=== PATIENT | female | born 1975 | race Caucasian/White ===

== ENCOUNTER 2024-08-19 11:05 | Emergency (ER) | payer OTHER, SELFPAY ==
--- OUTSIDE RECORDS SUMMARY | 2024-08-19 11:08 | XMS_ITS | Continuity of Care Document ---
Author Name Prema Mariscal Address [address] [facility] [address] [place] [address] Organization Unknown Address [address] [place] [address] [address] [place] [address] Medications Problems
--- OUTSIDE RECORDS SUMMARY | 2024-08-19 11:08 | XMS_ITS | Clinical Summary ---
Author Organization [facility] Address [address] [facility] [place] [address] Care Team Providers Care Blow Mold Technician Name Role Phone Unavailable Primary Care Provider Unavailabl e Source Comments [facility],non-owned Affiliates and Associated Physician Practices is amultiple site organization consisting of ambulatory clinics and hospital sitesin [place], [place], [place] and [place]. This disclosure is being madepursuant to the Care Everywhere program and may not contain all information available regarding this patient. Last updated 18.[facility] Social History Tobacco Use Types Packs/Day Years Used Date Smoking Tobacco: Never Assessed Sex and Gender Information Value Date Recorded Sex Assigned at Not on file Gender Identity Not on file Sexual Orientation Not on file Last Filed Vital Signs Vital Sign Reading Time Taken Comments Blood Pressure 116/72 05/16/2014 7:50 AM ORACLE SPECIALIST Pulse 59 05/16/2014 7:50 AM ORACLE SPECIALIST Temperature 37.6 C (99.7 F) 05/16/2014 7:50 AM ORACLE SPECIALIST Respiratory Rate 16 05/16/2014 7:50 AM ORACLE SPECIALIST Oxygen Saturation 97% 05/16/2014 7:50 AM ORACLE SPECIALIST Inhaled Oxygen Concentration - - Weight 68.5 kg (151 lb 1 oz) 05/15/2014 7:05 AM ORACLE SPECIALIST Height 154.9 cm (5' 1 ) 05/15/2014 7:05 AM ORACLE SPECIALIST Body Mass Index 28.54 05/15/2014 7:05 AM ORACLE SPECIALIST Plan of Treatment Health Maintenance Due Date Last Done Comments COLOGUARD (AGES 45-75) - COL ON CA SCREENING 1975 COLON MONITORING 1975 COLONOSCOPY - COLON CA SCREENING 1975 CT COLONOGRAPHY - COLON CA SCREENING 1975 Colorectal Cancer Screening 1975 FIT - COLON CA SCREENING 1975 FLEX SIG - COLON CA SCREENING 1975 LIPID TESTING 1975 MAMMOGRAM 1975 PAP SMEAR 1975 HIV SCREENING 1990 HEPATITIS C SCREENING 05/05/1993 DTAP/TDAP/TD VACCINES (1 - Tdap) 1994 HEPATITIS B VACCINE (1 of 3 - 19+ 3-dose series) 1994 COVID-19 VACCINE ( - 2023-2 5 season) 2024 INFLUENZA VACCINE (#1) 2024 DEPRESSION SCREENING 07/04/2024 ZOSTER VACCINE (1 of 2) 2025 HIB VACCINE Aged Out No longer eligi ble based on patient's age to complete this topic HPV VACCINE Aged Out No longer eligi ble based on patient's age to complete this topic MENINGOCOCCAL (Group B) VACCINE Aged Out No longer eligible based on patient's age to complete this topic MENINGOCOCCAL VACCINE Aged Out No randy william eligible based on patient's age to complete this topic PNEUMOCOCCAL VACCINE Aged Out No long er eligible based on patient's age to complete this topic
--- OUTSIDE RECORDS SUMMARY | 2024-08-19 11:08 | XMS_ITS | Clinical Summary ---
Author Organization [facility] Address [address] [place] [address] Phone Care Team Providers Care Milk Inspector Name Role Phone Unavailable Unavailable Unavailable Reason for Visit and Chief Complaint The Chief Complaint is: Due for pap and mammogram. Been having some cramping and spotting not all the time started 6 months ago spotting is like every other month and for only a few days. Painful during intercourse,. patient still has ovaries Plan of Treatment Bleeding s/p hysterectomy: cervix clearly still present on exam so I explained this is fairly common since she has ovaries and cervix and no need to worry unless bleeding is heavy or prolonged. Op note and pathology requested Pelvic pain/dyspareunia: check pelvic U/S - Last Documented On 07/26/2017 3:43PM ; [facility] Pending Tests Order Diagnosis Results Due Ordering P rovider U/S @ [facility]I - OB or JV U/S PTVT US Pelvic and perineal pain 07/26/17 SHALA ANTUNEZ MD Last Documented On 8 2:23PM ; [facility] Radiology @ other - *MAMMOGRAPHY SCREENING MAMMOGRAM Encntr screen mammogram for malignant neoplasm of breast 07/26/17 SHALA ANTUNEZ MD Last Documented On 8 2:29PM ; [facility] Instructions to patient Instructions for patient : B reast Self Exam discussed Last Documented On 8 3:25PM ; [facility] Education and Decision Aids were provided during visit for: Patient education : Last Documented On 8 3:25PM ; [facility] STD screening offered and de clined Last Documented On 8 3:25PM ; [facility] Assessments Includes: Assessments from this encounter Findings - Routine pelvic exam - Last Documented On 07/26/2017 3:43PM ; [facility] - Deep dyspareunia - Last Documented On 07/26/2017 3:43PM ; [facility] - Female pelvic pain - Last Documented On 07/26/2017 3:43PM ; [facility] - Abnormal vaginal bleeding - Last Documented On 07/26/2017 3:43PM ; [facility] Instructions Includes: Instructions from this encounter Instructions to patient Instructions for patient : B reast Self Exam discussed Last Documented On 8 3:25PM ; [facility] Education and Decision Aids were provided during visit for: Patient education : Last Documented On 8 3:25PM ; [facility] STD screening offered and de clined Last Documented On 8 3:25PM ; [facility] Medical Equipment - Implanted Devices Includes: Current Devices No Medical Equipment Recorded Medications Includes: Medications discussed during this encounter and other current Medications No Medications Taken Medications Administered Includes: Administered Medications from this encounter No Administered Medications Recorded Vital Signs Includes: Vital Signs from this encounter Vital Name 07/26/2017 03:09P Blood Pressure Sitting (mmHg) 130/62 Pulse Rate-Sitting (bpm) 72 Height (in) 61 Weight (lb) 167.5 Body Mass Index (kg/m2) 31.6 Body Surface Area (m2) 1.8 Last Documented: On 07/26/2017 3:13PM ; [facility] Results Includes: Results discussed during this encounter No Results Recorded For Specified Dates History of Present Illness Includes: History of Present Illness from this encounter NICHOLE ERVIN is a 42 year old female. - Unusual bleeding hysterectomy 2010 then started bleeding about 6 months ago on average every 2 months for 1-2 days light flow to pinkish with mucus. No itching or burning or foul smell. - Pelvic pain mainly LLQ around time of bleeding but other times as well, Tylenol helps. No urinary or bowel complaints. - Vaginal pain during intercourse for a couple years - No vaginal discharge Social History Description Last Updated In monogamous relationship 07/26/2017 Last Documented On 8 3:43PM ; [facility] Alcohol use: 2 drinks or less per day no ne 07/26/2017 Last Documented On 8 3:43PM ; [facility] Non-smoker 07/26/2017 Last Documented On 8 3:43PM ; [facility] Sexually active 07/26/2017 Last Documented On 8 3:43PM ; [facility] Smoking Status Unknown Procedures and Surgical History Includes: Procedures from this encounter Procedures Code Diagnosis Performing Provider Service L ocation Service Date gynecologic surgery Hysterectomy ~Cholecystectomy ~Vaginal 58267 Last Documented On 8 3:06PM ; [facility] Clinical summary provided to patient Last Documented On 8 3:25PM ; [facility] cervical Pap smear 25008 Last Documented On 8 3:25PM ; [facility] Surgical History Last Updated History of hysterectomy 07/26/2017 Last Documented On 8 3:43PM ; [facility] Surgical / procedural history 07/26/2017 Last Documented On 8 3:43PM ; [facility] Medical History Includes: Medical History addressed during this encounter Description Last Updated Med Hx: noneMeds: noneAll: P CNSurg Hx: laparoscopic hysterectomy (she thinks it was total and cervix removed and had both ovaries left in place) in [place] due to heavy periods, 4 ablations [facility] to [facility] with Dr. Avila, L/S choleSoc Hx: quit smoking 2006, occ ETOH, no drugsOb Hx; X 1Gyn Hx: no abnl pap/STDFam Hx: mat aunt-breast cancer age 44, MGM-ovarian cancer in her 40s, no uterine cancer 07/26/2017 Last Documented On 8 3:43PM ; [facility] Contraception: Hysterectomy 07/26/2017 Last Documented On 8 3:43PM ; [facility] 1 07/26/2017 Last Documented On 8 3:43PM ; [facility] Last mammogram date: 01/30/2011 8 Last Documented On 8 3:43PM ; [facility] Last pap smear date 01/23/2011 07/26/2017 Last Documented On 8 3:43PM ; [facility] LMP: 12/06/2010 07/26/2017 Last Documented On 8 3:43PM ; [facility] Para 1 07/26/2017 Last Documented On 8 3:43PM ; [facility] Family History Includes: Family History addressed during this encounter No Family History Recorded Review of Systems Includes: Review of Systems from this encounter Systemic: No recent weight change. Head: No headache. Eyes: No vision problems. Otolaryngeal: No hoarseness. Cardiovascular: No chest pain or discomfort and no palpitations. Pulmonary: No shortness of breath. Gastrointestinal: Normal appetite. No nausea, no vomiting, and no hematochezia. No diarrhea and no constipation. Genitourinary: No nocturia. No urinary loss of control and no dysuria. Musculoskeletal: No arthralgias and no localized joint swelling. Neurological: No tingling and no numbness. Psychological: No anxiety, no depression, and no sleep disturbances. Mental Status Includes: Mental Status from this encounter Description No anxiety Functional Status Includes: Functional Status from this encounter No Functional Status Recorded Physical Exam Includes: Physical Exam from this encounter Allergies Includes: Active Allergies Substance Type Reaction Onset Date Resolved Date Statu s Penicillin V Potassium Allergy 07/26/2017 Active Last Documented On 8 3:06PM ; [facility] Encounters Encounter Provider Location Date Check-In Time Check-Out Time Diagnosis NEW PHARMACY INFORMATICS SPECIALIST EXAM SHALA ANTUNEZ MD [facility] RECRUITER MANAGER 07/26/19 18 2:56PM 3:41PM Female Pelvic Pain,Dyspareu sg Deep,Routine Pelvic Exam,Abnormal Vaginal Bleeding Insurance Includes: Active Insurance Policies No Insurance Coverage Recorded Guarantor Relationship Effective Dates Guarantor Ph one NELSON ERVIN Self [id number] Clinical Notes Includes: Clinical Notes from this encounter No Clinical Notes Recorded
--- OUTSIDE RECORDS SUMMARY | 2024-08-19 11:08 | XMS_ITS | Continuity of Care Document ---
Author Name Prema Mariscal Address [address] [facility] [address] [place] [address] Organization Unknown Address [address] [place] [address] [address] [place] [address] Medications Problems
--- OUTSIDE RECORDS SUMMARY | 2024-08-19 11:08 | XMS_ITS | Patient Health Summary ---
Author Organization [facility] Address [address] [place] [address] Care Team Providers Care Appraiser Name Role Phone Unavailable Primary Care Provider Unavailabl e Note from [facility],non-owned Affiliates and Associated Physician Practices is amultiple site organization consisting of ambulatory clinics and hospital sitesin [place], [place], [place] and [place]. This disclosure is being madepursuant to the Care Everywhere program and may not contain all information available regarding this patient. Last updated 18.[facility] Social History Tobacco Use Types Packs/Day Years Used Date Smoking Tobacco: Never Assessed Sex and Gender Information Value Date Recorded Sex Assigned at Not on file Gender Identity Not on file Sexual Orientation Not on file Last Filed Vital Signs Vital Sign Reading Time Taken Comments Blood Pressure 116/72 05/16/2014 7:50 AM FLOW MATCH SOFA CUTTER Pulse 59 05/16/2014 7:50 AM FLOW MATCH SOFA CUTTER Temperature 37.6 C (99.7 F) 05/16/2014 7:50 AM FLOW MATCH SOFA CUTTER Respiratory Rate 16 05/16/2014 7:50 AM FLOW MATCH SOFA CUTTER Oxygen Saturation 97% 05/16/2014 7:50 AM FLOW MATCH SOFA CUTTER Inhaled Oxygen Concentration - - Weight 68.5 kg (151 lb 1 oz) 05/15/2014 7:05 AM FLOW MATCH SOFA CUTTER Height 154.9 cm (5' 1 ) 05/15/2014 7:05 AM FLOW MATCH SOFA CUTTER Body Mass Index 28.54 05/15/2014 7:05 AM FLOW MATCH SOFA CUTTER Procedures * PATHOLOGY TISSUE(Performed 05/15/2014) * TYPE + SCREEN PANEL(Performed 05/15/2014) * CBC W/O DIFFERENTIAL(Performed 05/08/2014) * COMPREHENSIVE METABOLIC PANEL(Performed 04/11/2014) Results * PATHOLOGY TISSUE (05/15/2014 10:15 AM FLOW MATCH SOFA CUTTER) Surgical Pathology Tissue CLINICAL HISTORY: Calculus of gallbladder without mention of cholecystitis or obstruction. OPERATIVE PROCEDURE: Laparoscopic cholecystectomy, possible intraoperative cholangiogram. FINAL DIAGNOSIS: GALLBLADDER, CHOLECYSTECTOMY: - MILD CHRONIC CHOLECYTITIS AND CHOLELITHIASIS GROSS DESCRIPTION: Container A is labeled with Hein, Zee and gallbladder . Received, in formalin, is a gallbladder which measures 11.2 cm in length and is up to 2.7 cm in diameter. The cystic duct measures 0.3 cm in diameter. The serosal surface is purple-blue and glistening. The gallbladder wall measures up to 0.3 cm in thickness. The mucosal surface is green and velvety. Contained within the lumen of the gallbladder are green bile and multiple, multi-faceted green stones ranging in greatest dimension from 0.4 to 0.7 cm. There are multiple stones found occluding the cystic duct. [place] Protection Maintainer sections from the gallbladder are submitted in cassette A1. VEENA for SM/edk MICROSCOPIC DESCRIPTION: Sections show portions of gallbladder with mild chronic inflammation within the submucosa. There is no cytologic atypia or architectural abnormality. TRUMAN/josefina The performance characteristics of all immunohistochemical and indirect immunofluorescence stains (if any) cited in this report were determined by the [facility]opathology Laboratory of [facility]. Some of these tests were developed by our own laboratory and have not been cleared or approved by the US Food and Drug Administration. The FDA does not require this test to go through premarket FDA review. These tests are used for clinical purposes. They should not be regarded as investigational or for research. This laboratory is certified under the Clinical Laboratory Improvement Amendments (CLIA) as qualified to perform high complexity clinical laboratory testing. This case has been personally reviewed and interpreted by the attending (teaching) pathologist. Final Diagnosis performed by Anisha Barger M.D. Electronically signed 05/16/2014 [facility] Other (qualifier value) 05/15/2014 10:15 AM FLOW MATCH SOFA CUTTER 05/15/2014 12:36 PM FLOW MATCH SOFA CUTTER Narrative [facility] - 05/16/2014 3:13 PM FLOW MATCH SOFA CUTTER PROBLEM LIST: The problems are not reviewed yet. Please review them in the Problem List activity and refresh this SmartLink. PRE-OP DIAGNOSIS: CALCULUS OF GALLBLADDER WITHOUT MENTION OF CHOLECYSTITIS OR OBSTRUCTION OPERATIVE PROCEDURE / FINDINGS: Procedure(s) with comments: LAPAROSCOPIC CHOLECYSTECTOMY, POSSIBLE INTRAOPERATIVE CHOLANGIOGRAM - 52041 POST-OP DIAGNOSIS: No post-op diagnosis entered Collection Date->05/15/14 Collection Time->10:15 AM Specimen A->Gallbladder Gallbladder for perm. Raulito Up MD LAB - PATHOLOGY/CYTO LOGY ORDERABLES [facility] * TYPE + SCREEN PANEL (05/15/2014 7:47 AM FLOW MATCH SOFA CUTTER) Typem O NEG [facility] Antibody Screen NEG [facility] Blood specimen (specimen) 05/15/2014 7:47 AM FLOW MATCH SOFA CUTTER 05/15/2014 7:47 AM FLOW MATCH SOFA CUTTER Brian Cruz MD LAB - BLOOD BANK ORD ERASONU Performing Organization Address City/[facility]/ZIP Co de Phone Number [facility] [address] [place] [address] * CBC W/O DIFFERENTIAL (05/08/2014 10:31 AM FLOW MATCH SOFA CUTTER) WBC 5.5 3.5 - 10.5 10 3/uL [facility] RBC 4.55 3.90 - 5.00 10 6/uL [facility] Hemoglobin 14.6 12.0 - 15.5 g/dL [facility] Hematocrit 43.0 35.0 - 45.0 % [facility] MCV 94.5 81.0 - 97.0 fL [facility] MCH 32.1 28.0 - 34.0 pg [facility] MCHC 34.0 32.0 - 36.0 g/dL [facility] Platelet Count 210 150 - 400 10 3/uL [facility] RDW-SD 41.9 36.0 - 50.0 fL [facility] RDW-CV 12.3 11.2 - 14.8 % [facility] MPV 10.2 9.3 - 12.8 fL [facility] Blood specimen (specimen) BLOOD SPECIMEN / Unknown 05/08/2014 10:31 AM FLOW MATCH SOFA CUTTER 05/08/2014 10:52 AM FLOW MATCH SOFA CUTTER Brian Cruz MD LAB - [place] [address], [place] [phone] * COMPREHENSIVE METABOLIC PANEL (04/11/2014 3:29 PM CDT) BUN 12 7 - 26 mg/dL [facility] Creatinine 0.7 0.6 - 1.2 mg/dL [facility] Sodium 143 136 - 145 mmol/L [facility] Potassium 3.7 3.5 - 4.5 mmol/L [facility] Chloride 107 98 - 107 mmol/L [facility] CO2 24 22 - 29 mmol/L [facility] Glucose 84 70 - 115 mg/dL [facility] Calcium 10.1 8.4 - 10.2 mg/dL [facility] Protein Total 7.6 6.0 - 8.3 g/dL [facility] Albumin 4.3 3.4 - 5.0 g/dL [facility] Bilirubin Total 0.6 0.2 - 1.2 mg/dL [facility] Alkaline Phosphatase 58 40 - 150 Units/L [facility] ALT 15 0 - 55 Units/L [facility] AST 19 5 - 34 Units/L [facility] Anion Gap 16 8 - 18 [facility] BUN/Creatinine Ratio 17 7 - 23 [facility] Osmolality Calculated 280 270 - 300 mOsm/kg [facility] Albumin/Globulin Ratio 1.3 1.1 - 2.3 [facility] eGFR >60 >60 mL/min/1.7 3 m2 [facility] Blood specimen (specimen) BLOOD SPECIMEN / Unknown 04/11/2014 3:29 PM CDT 04/11/2014 3:48 PM CDT Raulito Up MD LAB - CHEMISTRY EDITH Blood Organization Address City/State/ZIP Co de Phone Number [facility] [address] [phone]
--- OUTSIDE RECORDS SUMMARY | 2024-08-19 11:08 | XMS_ITS ---
Care Plan - [facility] Created on: August 19, 2024 NELSON ERVIN : 1975 Sex: Female Author Organization [facility] Address [address] [place] [address] Phone Care Team Providers Care Builder Operator Name Role Phone Unavailable Unavailable Unavailable
--- OUTSIDE RECORDS SUMMARY | 2024-08-19 11:08 | XMS_ITS | Clinical Summary ---
Author Organization [facility] Address [address] [place] [address] Phone Care Team Providers Care Senior Net Developer Architect Name Role Phone Unavailable Unavailable Unavailable Reason for Visit and Chief Complaint PELVIC W/TVT Plan of Treatment No Plan of Treatment Recorded Assessments Includes: Assessments from this encounter No Assessments Recorded Medical Equipment - Implanted Devices Includes: Current Devices No Medical Equipment Recorded Medications Includes: Medications discussed during this encounter and other current Medications No Medications Taken Medications Administered Includes: Administered Medications from this encounter No Administered Medications Recorded Results Includes: Results discussed during this encounter No Results Recorded For Specified Dates History of Present Illness Includes: History of Present Illness from this encounter No History of Present Illness Recorded Social History No Social History Recorded - Smoking Status Unknown Medical History Includes: Medical History addressed during this encounter No Medical History Recorded Family History Includes: Family History addressed during this encounter No Family History Recorded Review of Systems Includes: Review of Systems from this encounter No Review of Systems Recorded Mental Status Includes: Mental Status from this encounter No Mental Status Recorded Functional Status Includes: Functional Status from this encounter No Functional Status Recorded Physical Exam Includes: Physical Exam from this encounter No Physical Exam Recorded Allergies Includes: Active Allergies Substance Type Reaction Onset Date Resolved Date Statu s Penicillin V Potassium Allergy 07/26/2017 Active Last Documented On 8 3:06PM ; [facility] Encounters Encounter Provider Location Date Check-In Time Check-Out Time Diagnosis PELVIC W/TVT SHALA ANTUNEZ MD [facility] DATA OFFICER 8 10:28AM 10:43AM Insurance Includes: Active Insurance Policies No Insurance Coverage Recorded Guarantor Relationship Effective Dates Guarantor Ph one NELSON ERVIN Self [id number] Clinical Notes Includes: Clinical Notes from this encounter No Clinical Notes Recorded
--- OUTSIDE RECORDS SUMMARY | 2024-08-19 11:08 | XMS_ITS ---
Author Organization [facility] Address [address] [place] [address] Phone Care Team Providers Care Meeting Planner Name Role Phone Unavailable Unavailable Unavailable Plan of Treatment Instructions to patient Instructions for patient : B reast Self Exam discussed Last Documented On 8 3:25PM ; [facility] Education and Decision Aids were provided during visit for: Patient education : Last Documented On 8 3:25PM ; [facility] STD screening offered and de clined Last Documented On 8 3:25PM ; [facility] Assessments Includes: Assessments for all patient encounters Findings Encounter Date Abnormal vaginal bleeding NEW EMBROIDERY SUPERVISOR EXAM with SHALA ANTUNEZ MD 07/26/2017 Last Documented On 8 3:43PM ; [facility] Deep dyspareunia NEW EMBROIDERY SUPERVISOR EXAM with SHALA ANTUNEZ MD 07/26/2017 Last Documented On 8 3:43PM ; [facility] Female pelvic pain NEW EMBROIDERY SUPERVISOR EXAM with SHALA REYES MD 07/26/2017 Last Documented On 8 3:43PM ; [facility] Routine pelvic exam NEW EMBROIDERY SUPERVISOR EXAM with SHALA CONTRERAS MD 07/26/2017 Last Documented On 8 3:43PM ; [facility] Instructions Includes: Instructions for all patient encounters Instructions to patient Instructions for patient : B reast Self Exam discussed Last Documented On 8 3:25PM ; [facility] Education and Decision Aids were provided during visit for: Patient education : Last Documented On 8 3:25PM ; [facility] STD screening offered and de clined Last Documented On 8 3:25PM ; [facility] Medical Equipment - Implanted Devices Includes: Current and historical Devices No Medical Equipment Recorded Medications Includes: Current and historical Medications No Medications Taken Medications Administered Includes: Administered Medications in patient's chart No Administered Medications Recorded Results Includes: Results from 08/19/2023 through 08/19/2024 No Results Recorded For Specified Dates History of Present Illness History of Present Illness not supported for this document type No History of Present Illness Recorded Social History Description Last Updated In monogamous relationship 07/26/2017 Last Documented On 8 3:43PM ; [facility] Alcohol use: 2 drinks or less per day no ne 07/26/2017 Last Documented On 8 3:43PM ; [facility] Non-smoker 07/26/2017 Last Documented On 8 3:43PM ; [facility] Sexually active 07/26/2017 Last Documented On 8 3:43PM ; [facility] Smoking Status Unknown Procedures and Surgical History Surgical History Last Updated History of hysterectomy 07/26/2017 Last Documented On 8 3:43PM ; [facility] Surgical / procedural history 07/26/2017 Last Documented On 8 3:43PM ; [facility] Medical History Includes: Medical History in patient's chart Description Last Updated Contraception: Hysterectomy 07/26/2017 Last Documented On 8 3:43PM ; [facility] 1 07/26/2017 Last Documented On 8 3:43PM ; [facility] Last mammogram date: 01/30/2011 8 Last Documented On 8 3:43PM ; [facility] Last pap smear date 01/23/2011 07/26/2017 Last Documented On 8 3:43PM ; [facility] LMP: 12/06/2010 07/26/2017 Last Documented On 8 3:43PM ; [facility] Para 1 07/26/2017 Last Documented On 8 3:43PM ; [facility] Family History Includes: Family History in patient's chart No Family History Recorded Review of Systems Review of Systems not supported for this document type No Review of Systems Recorded Mental Status No Mental Status Recorded Functional Status No Functional Status Recorded Physical Exam Physical Exam not supported for this document type No Physical Exam Recorded Allergies Includes: Active, inactive, and resolved Allergies Substance Type Reaction Onset Date Resolved Date Statu s Penicillin V Potassium Allergy 07/26/2017 Active Last Documented On 8 3:06PM ; [facility] Insurance Includes: Active Insurance Policies No Insurance Coverage Recorded Guarantor Relationship Effective Dates Guarantor Ph one HILARIA ERVINAH Lotus Self [id number] Clinical Notes Includes: Signed Clinical Notes starting from 07/23/2022 No Clinical Notes Recorded
--- OUTSIDE RECORDS SUMMARY | 2024-08-19 11:08 | XMS_ITS | Clinical Summary ---
Author Organization [facility] Address [address] [place] [address] Phone Care Team Providers Care Diabetes Physician Name Role Phone Stevie Hernandez MD Primary Care Provider [phone] Social History Tobacco Use Types Packs/Day Years Used Date Smoking Tobacco: Never Assessed Comments Unknown Sex and Gender Information Value Date Recorded Sex Assigned at Not on file Legal Sex Female 11:46 PM CDT Gender Identity Not on file Sexual Orientation Not on file Plan of Treatment Health Maintenance Due Date Last Done Comments Hepatitis C Virus (HCV) Screening 1975 TdaP Immunization 1975 Hepatitis B Immunization (1 of 3 - 19+ 3-dose series) 1994 Pap Smear 1996 Cervical Cancer Screening (CCS) 2005 HPV/Cotest 2005 Discussion re Starting/Frequ ency of Mammograms 2015 Colonoscopy 2020 Colorectal Cancer Screening 2020 Influenza Immunization (#1) 2024 SARS-COV-2 Immunization ( season) 2024 Respiratory Syncytial Virus (RSV) Immunization (Adult) (1 - 1-dose 75+ series) 2050 Meningococcal Immunization (ACWY) Aged Out No longer eligible based on patient's age to complete this topic Pneumococcal Immunization Combined Aged Out No longer eligible based on patient's age to complete this topic Rotavirus Immunization Aged Out No lo nger eligible based on patient's age to complete this topic Care Teams Diabetes Physician Relationship Specialty Start Date End Date Stevie Hernandez MD [address] [place] [id number] PCP - General Family Medicine 10/16/15
--- OUTSIDE RECORDS SUMMARY | 2024-08-19 11:08 | XMS_ITS | Referral Summary ---
Author Organization [facility] Address [address] [place] [address] Care Team Providers Care Box Truck Owner Operator Name Role Phone Unavailable Primary Care Provider Unavailabl e Source Comments [facility],non-owned Affiliates and Associated Physician Practices is amultiple site organization consisting of ambulatory clinics and hospital sitesin [place], [place], [place] and [place]. This disclosure is being madepursuant to the Care Everywhere program and may not contain all information available regarding this patient. Last updated 18.[facility] Social History Tobacco Use Types Packs/Day Years Used Date Smoking Tobacco: Never Assessed Sex and Gender Information Value Date Recorded Sex Assigned at Not on file Gender Identity Not on file Sexual Orientation Not on file Last Filed Vital Signs Vital Sign Reading Time Taken Comments Blood Pressure 116/72 05/16/2014 7:50 AM PURCHASING ENGINEER Pulse 59 05/16/2014 7:50 AM PURCHASING ENGINEER Temperature 37.6 C (99.7 F) 05/16/2014 7:50 AM PURCHASING ENGINEER Respiratory Rate 16 05/16/2014 7:50 AM PURCHASING ENGINEER Oxygen Saturation 97% 05/16/2014 7:50 AM PURCHASING ENGINEER Inhaled Oxygen Concentration - - Weight 68.5 kg (151 lb 1 oz) 05/15/2014 7:05 AM PURCHASING ENGINEER Height 154.9 cm (5' 1 ) 05/15/2014 7:05 AM PURCHASING ENGINEER Body Mass Index 28.54 05/15/2014 7:05 AM PURCHASING ENGINEER Plan of Treatment Not on file
--- OUTSIDE RECORDS SUMMARY | 2024-08-19 11:10 | XMS_ITS | Clinical Summary ---
Author Organization [facility] Address [address] [place] [address] Phone Care Team Providers Care Semiconductor Technician Name Role Phone Unavailable Unavailable Unavailable Reason [...] - Last Documented On 07/26/2017 3:43PM ; [facility] Pending Tests Order Diagnosis Results Due Ordering P rovider U/S @ [facility]ANDI - OB or JV U/S PTVT US Pelvic and perineal pain 07/26/17 SHALA ANTUNEZ MD Last Documented On 8 2:23PM ; [facility] Radiology @ other - *MAMMOGRAPHY SCREENING MAMMOGRAM Encntr screen mammogram for malignant neoplasm of breast 07/26/17 SHALA ANTUNEZ MD Last Documented On 8 2:29PM ; [facility] Instructions to patient Instructions for patient : B reast Self Exam discussed Last Documented On 8 3:25PM ; [facility] Education and Decision Aids were provided during visit for: Patient education : Last Documented On 8 3:25PM ; [facility] STD screening offered and de clined Last Documented On 8 3:25PM ; [facility] Assessments Includes: Assessments from this encounter Findings - Routine pelvic exam - Last Documented On 07/26/2017 3:43PM ; [facility] - Deep dyspareunia - Last Documented On 07/26/2017 3:43PM ; [facility] - Female pelvic pain - Last Documented On 07/26/2017 3:43PM ; [facility] - Abnormal vaginal bleeding - Last Documented On 07/26/2017 3:43PM ; [facility] Instructions Includes: Instructions from this encounter Instructions to patient Instructions for patient : B reast Self Exam discussed Last Documented On 8 3:25PM ; [facility] Education and Decision Aids were provided during visit for: Patient education : Last Documented On 8 3:25PM ; [facility] STD screening offered and de clined Last Documented On 8 3:25PM ; [facility] Medical Equipment - Implanted Devices Includes: [...] 1.8 Last Documented: On 07/26/2017 3:13PM ; [facility] Results Includes: Results discussed during this [...] 07/26/2017 Last Documented On 8 3:43PM ; [facility] Alcohol use: 2 drinks or less per day no ne 07/26/2017 Last Documented On 8 3:43PM ; [facility] Non-smoker 07/26/2017 Last Documented On 8 3:43PM ; [facility] Sexually active 07/26/2017 Last Documented On 8 3:43PM ; [facility] Smoking Status Unknown Procedures and Surgical History Includes: Procedures from this encounter Procedures Code Diagnosis Performing Provider Service L ocation Service Date gynecologic surgery Hysterectomy ~Cholecystectomy ~Vaginal 88483 Last Documented On 8 3:06PM ; [facility] Clinical summary provided to patient Last Documented On 8 3:25PM ; [facility] cervical Pap smear 33728 Last Documented On 8 3:25PM ; [facility] Surgical History Last Updated History of hysterectomy 07/26/2017 Last Documented On 8 3:43PM ; [facility] Surgical / procedural history 07/26/2017 Last Documented On 8 3:43PM ; [facility] Medical History Includes: Medical History addressed during this encounter Description Last Updated Med Hx: noneMeds: noneAll: P CNSurg Hx: laparoscopic hysterectomy (she thinks it was total and cervix removed and had both ovaries left in place) in [place] due to heavy periods, 4 ablations prior to hysterectomy at [facility] with Dr. Avila, L/S choleSoc Hx: quit smoking 2006, occ ETOH, no drugsOb Hx; X 1Gyn Hx: no abnl pap/STDFam Hx: mat aunt-breast cancer age 44, MGM-ovarian cancer in her 40s, no uterine cancer 07/26/2017 Last Documented On 8 3:43PM ; [facility] Contraception: Hysterectomy 07/26/2017 Last Documented On 8 3:43PM ; [facility] 1 07/26/2017 Last Documented On 8 3:43PM ; [facility] Last mammogram date: 01/30/2011 8 Last Documented On 8 3:43PM ; [facility] Last pap smear date 01/23/2011 07/26/2017 Last Documented On 8 3:43PM ; [facility] LMP: 12/06/2010 07/26/2017 Last Documented On 8 3:43PM ; [facility] Para 1 07/26/2017 Last Documented On 8 3:43PM ; [facility] Family History Includes: Family History addressed [...] Active Last Documented On 8 3:06PM ; [facility] Encounters Encounter Provider Location Date Check-In Time Check-Out Time Diagnosis NEW SHINGLE WEAVER EXAM SHALA ANTUNEZ MD [facility] PSYCHOLOGISTS 07/26/19 18 2:56PM 3:41PM Female Pelvic Pain,Dyspareu sg Deep,Routine Pelvic Exam,Abnormal Vaginal Bleeding Insurance Includes: Active Insurance Policies No Insurance Coverage Recorded Guarantor Relationship Effective Dates Guarantor Ph one NELSON ERVIN Self [id number] Clinical Notes Includes: Clinical Notes from this encounter No Clinical Notes Recorded
--- OUTSIDE RECORDS SUMMARY | 2024-08-19 11:10 | XMS_ITS | Clinical Summary ---
Author Organization [facility] Address [address] [place] [address] Phone Care Team Providers Care Cloth Edge Singer Name Role Phone Unavailable Unavailable Unavailable Reason [...] Active Last Documented On 8 3:06PM ; [facility] Encounters Encounter Provider Location Date Check-In Time Check-Out Time Diagnosis PELVIC W/TVT SHALA ANTUNEZ MD [facility] FIELD INSTALLER 8 10:28AM 10:43AM Insurance Includes: Active Insurance Policies No Insurance Coverage Recorded Guarantor Relationship Effective Dates Guarantor Ph one NELSON ERVIN Self [id number] Clinical Notes Includes: Clinical Notes from this encounter No Clinical Notes Recorded
[2024-08-19 11:11] VITALS: BP 127/89; PULSE 99; RESP 18; TEMP 36.6; O2SAT 99
--- OUTSIDE RECORDS SUMMARY | 2024-08-19 11:11 | XMS_ITS ---
Author Organization [facility] Address [address] [place] [address] Phone Care Team Providers Care Mason Liner Name Role Phone Unavailable Unavailable Unavailable Plan of Treatment Instructions to patient Instructions for patient : B reast Self Exam discussed Last Documented On 8 3:25PM ; [facility] Education and Decision Aids were provided during visit for: Patient education : Last Documented On 8 3:25PM ; [facility] STD screening offered and de clined Last Documented On 8 3:25PM ; [facility] Assessments Includes: Assessments for all patient encounters Findings Encounter Date Abnormal vaginal bleeding NEW COUNTY JUDGE EXAM with SHALA ANTUNEZ MD 07/26/2017 Last Documented On 8 3:43PM ; [facility] Deep dyspareunia NEW COUNTY JUDGE EXAM with SHALA ANTUNEZ MD 07/26/2017 Last Documented On 8 3:43PM ; [facility] Female pelvic pain NEW COUNTY JUDGE EXAM with SHALA REYES MD 07/26/2017 Last Documented On 8 3:43PM ; [facility] Routine pelvic exam NEW COUNTY JUDGE EXAM with SHALA CONTRERAS MD 07/26/2017 Last Documented On 8 3:43PM ; [facility] Instructions Includes: Instructions for all patient encounters Instructions to patient Instructions for patient : B reast Self Exam discussed Last Documented On 8 3:25PM ; [facility] Education and Decision Aids were provided during visit for: Patient education : Last Documented On 8 3:25PM ; [facility] STD screening offered and de clined Last Documented On 8 3:25PM ; [facility] Medical Equipment - Implanted Devices Includes: Current [...] 07/26/2017 Last Documented On 8 3:43PM ; [facility] Alcohol use: 2 drinks or less per day no ne 07/26/2017 Last Documented On 8 3:43PM ; [facility] Non-smoker 07/26/2017 Last Documented On 8 3:43PM ; [facility] Sexually active 07/26/2017 Last Documented On 8 3:43PM ; [facility] Smoking Status Unknown Procedures and Surgical History Surgical History Last Updated History of hysterectomy 07/26/2017 Last Documented On 8 3:43PM ; [facility] Surgical / procedural history 07/26/2017 Last Documented On 8 3:43PM ; [facility] Medical History Includes: Medical History in patient's chart Description Last Updated Contraception: Hysterectomy 07/26/2017 Last Documented On 8 3:43PM ; [facility] 1 07/26/2017 Last Documented On 8 3:43PM ; [facility] Last mammogram date: 01/30/2011 8 Last Documented On 8 3:43PM ; [facility] Last pap smear date 01/23/2011 07/26/2017 Last Documented On 8 3:43PM ; [facility] LMP: 12/06/2010 07/26/2017 Last Documented On 8 3:43PM ; [facility] Para 1 07/26/2017 Last Documented On 8 3:43PM ; [facility] Family History Includes: Family History in patient's [...] Active Last Documented On 8 3:06PM ; [facility] Insurance Includes: Active Insurance Policies No Insurance Coverage Recorded Guarantor Relationship Effective Dates Guarantor Ph one HILARIA ERVINAH Lotus Self [id number] Clinical Notes Includes: Signed Clinical Notes starting from 07/23/2022 No Clinical Notes Recorded
--- OUTSIDE RECORDS SUMMARY | 2024-08-19 11:11 | XMS_ITS ---
Care Plan - [facility] Created on: August 19, 2024 NELSON ERVIN : 1975 Sex: Female Author Organization [facility] Address [address] [place] [address] Phone Care Team Providers Care Legal Paraprofessional Name Role Phone Unavailable Unavailable Unavailable
--- NOTE | 2024-08-19 12:35 | ED_ITS ---
HPI - Extremity Problem General Chief complaint: Extremity Problem,Nontraumatic Stated complaint: Right Ring Finger Skin Sore Source: patient Mode of arrival: ambulatory Limitations: no limitations History of Present Illness HPI Narrative: Patient presents for evaluation of pain, swelling, and redness to 4th digit of the right hand. 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 She an increase in pain in her fourth digit of right hand three days ago. She then noted a pustule and redness to the affected digit. She woke from sleep this morning with a red streak up her hand, forearm and midway through the upper arm. She reports fever and chills. No nausea, vomiting or diarrhea. She is not diabetic. She does not smoke. She is right hand dominant. She rates her pain as 4/10 in severity. Related Data Home Medications ?Medication ?Instructions ?Recorded ?Confirmed ?Last Taken ?Type No Home Medications 08/19/24 08/19/24 Unknown History Allergies Allergy/AdvReac Type Severity Reaction Status Date / Time No Known Allergies Allergy Verified 08/19/24 11:23 Review of Systems Review of Systems: CONSTITUTIONAL: Reports fever and chills. EYES: Denies visual changes, redness, or discharge. ENT: Denies rhinorrhea, congestion, sore throat, or otalgia. CARDIOVASCULAR: Denies chest pain, palpitations, or edema. RESPIRATORY: Denies cough or dyspnea. GASTROINTESTINAL: Denies abdominal pain, nausea, vomiting, or diarrhea. GENITOURINARY: Denies dysuria or hematuria. SKIN: Reports pustule to the right ring finger with associated redness, which streaks up the right upper extremity MUSCULOSKELETAL: Reports pain and swelling in the fourth digit of the right hand NEUROLOGIC: Denies headache, numbness, dizziness, or weakness. PSYCHIATRIC: Denies anxiety or depression. [facility] Past Medical History Medical History No pertinent past medical history Surgical History Surgical History No pertinent past surgical history Family History Family History Mother Family history non-contributory Social History Social History (Updated 08/19/24 @ 12:39 by Guillermo Tay, [facility], ) Living arrangements: with family Gender identity (if verbalized by the patient): Female Spiritual care concerns: No Exam Narrative: GENERAL: Well-appearing, well-nourished, and in no acute distress. HEAD: Normocephalic, atraumatic. EYES: PERRLA and EOMI. ENT: Nares clear, no rhinorrhea or epistaxis. Mucous membranes moist. Oropharynx without tonsillar hypertrophy exudate or other lesions. Bilateral TMs pearly spear nonbulging NECK: Supple. No adenopathy or masses. No carotid bruits or JVD CHEST: Clear to auscultation. No respiratory distress. No wheezes rales or rhonchi HEART: Regular rate and rhythm. No murmur heard. Normal peripheral pulses. ABDOMEN: Soft, nontender, nondistended, normal active bowel sounds. EXTREMITIES: Normal range of motion. There is soft tissue swelling in the fourth digit of the right hand SKIN: There is approximately a 2 cm pustule noted to the distal phalanx of the palmar aspect of the 4th digit of the right hand. Fourth digit of the right hand is erythematous and there is a red streak running up the right forearm through the middle of the right upper arm. NEURO: No focal deficits. Alert and oriented x3. PSYCH: Normal mood and affect. Course Course Emergency Course: This is a 49-year-old female who presented for evaluation of redness, swelling and pain to the 4th digit of the right hand. She has appearance cellulitis. I am concerned about the red streak running up her right upper extremity in the setting of fevers and chills. I recommended she be transferred to the hospital for further evaluation treatment. She is agreeable with this plan. [facility] is her facility of choice. I contacted [facility] ER and spoke with RN, Lelia. She states Dr Escalera will accept pt to the Dept there. Pt transferred via private vehicle. Level of Care: Express Care Visit Vital Signs Vital signs: Vital Signs Temperature 36.6 C 08/19/24 11:11 Pulse Rate 99 08/19/24 11:11 Respiratory Rate 18 08/19/24 11:11 Blood Pressure 127/89 08/19/24 11:11 Pulse Oximetry 99 08/19/24 11:11 Oxygen Delivery Room Air 08/19/24 11:11 Temperature 36.6 C 08/19/24 11:11 Pulse Rate 99 08/19/24 11:11 Respiratory Rate 18 08/19/24 11:11 Blood Pressure 127/89 08/19/24 11:11 Pulse Oximetry 99 08/19/24 11:11 Oxygen Delivery Room Air 08/19/24 11:11 Discharge Plan Discharge Clinical Impression: Cellulitis of finger, right Patient Disposition: Acute Care Hospital Condition: Stable Instructions: Cellulitis (ED) Patient Language: Setswana Prescriptions: No Action No Home Medications Follow-up/Referrals: PHYSICIAN,SUMMER CAMP COUNSELOR [Primary Care Provider] - Time of Disposition: 12:35
== END 2024-08-19 12:42 | disposition short-term general hospital (02) ==
PROVIDERS: Emergency Provider Nurse Practitioner
DX: L03.011 Cellulitis of right finger (principal)
CPT/HCPCS: 99202; G0463